=== PATIENT | female | born 1975 | race Hispanic/Latino ===

== ENCOUNTER 2019-09-27 14:44 | Outpatient (CLI) | payer OTHER ==
--- NOTE | 2019-09-27 15:53 | MMO ---
Bilateral MAMMO Bilat Diag DDI+TESHA. CLINICAL HISTORY: Patient is 44 years old and is seen for diagnostic exam and lump or thickening in the lower-inner region of the right breast. The patient has the following family history of breast cancer: cousin female, malignant (generic), MATERNAL and paternal aunt. The patient has no personal history of cancer. VIEWS: The views performed were: bilateral craniocaudal with tomosynthesis; bilateral mediolateral oblique with tomosynthesis; and bilateral mediolateral with tomosynthesis. FILMS COMPARED: The present examination has been compared to prior imaging studies performed at [facility] on 09/22/2016, and at [facility] on 09/27/2019. This study has been interpreted with the assistance of computer-aided detection. MAMMOGRAM FINDINGS: There are scattered fibroglandular densities. Left breast: There are no suspicious masses, calcifications or areas of architectural distortion. Right breast: There are no suspicious masses, calcifications or areas of architectural distortion. No mammographic or sonographic abnormality at the level of the palpable marker. Refer to separate US report. There are no suspicious masses, suspicious calcifications, or new areas of architectural distortion. IMPRESSION: THERE IS NO MAMMOGRAPHIC EVIDENCE OF MALIGNANCY. WITH REGARD TO THE PALPABLE FOCUS, FURTHER EVALUATION INCLUDING ADDITIONAL IMAGING AND/OR BIOPSY SHOULD BE BASED ON CLINICAL FINDINGS/SUSPICION. A ROUTINE FOLLOW-UP MAMMOGRAM IN 1 YEAR IS RECOMMENDED. THE RESULTS OF THIS EXAM WERE SENT TO THE PATIENT. ACR BI-RADS Category 2 - Benign finding MAMMOGRAPHY NOTE: 1. A negative mammogram report should not delay a biopsy if a dominant of clinically suspicious mass is present. 2. Approximately 10% to 15% of breast cancers are not detected by mammography. 3. Adenosis and dense breasts may obscure an underlying neoplasm. Reported by: SEVERO MARADIAGA MD Electonically Signed: [id number]
--- NOTE | 2019-09-27 16:07 | ULT ---
RIGHT BREAST ULTRASOUND: 09/27/19 HISTORY: Palpable area in the lower inner right breast. COMPARISON: None. TECHNIQUE: Targeted sonographic imaging of the right breast was performed. After reviewing static images, real t clarisse imaging was performed by the radiologist. Patient's right breast was also palpated by the radiologist. FINDINGS: There is evidence of a firm palpable focus in the inner lower right breast. Mammographic and sonograp hic images demonstrate fibroglandular tissue. No definite mass, architectural distortion or persisten t shadowing. IMPRESSION: BIRADS 2: Benign Finding(s) Routine annual screening mammography (for women over age 40). There is no mammographic or sonographic correlate to the palpable focus in the lower inner right [address]. RECOMMENDATION: Follow-up imaging in one year. With regard to the palpable focus, further evaluation including additi onal imaging and/or biopsy is recommended. Follow-up should be based upon clinical finding and/or jennifer picion. POS: JAIME
== END 2019-09-27 14:45 | disposition home or self-care (01) ==
LOC: BICMAMMO 14:44
PROVIDERS: ATTEND Family Medicine
DX: N63.10 Unspecified lump in the right breast, unspecified quadrant (principal)
CPT/HCPCS: 77066; G0279

== ENCOUNTER 2020-04-29 05:49 | Day surgery (SDC) | payer OTHER ==
[2020-04-25 10:38] VITALS: BMI 38.2
[2020-04-26 13:41] LABS: Hemoglobin 9.6 g/dL (12.0-16.0); Mean Corpuscular HGB CONC 30.7 g/dL (32.0-36.0); Mean Corpuscular Hemoglobin 21.7 pg (27.0-31.0); Mean Corpuscular Volume 70.8 fL (78.0-98.0); Mean Platelet Volume 9.5 fL (7.4-10.4); Platelet Count 312 thou/uL (130-400); RBC Distribution Width 15.7 % (11.5-14.5); Red Blood Cell (RBC) Count 4.43 mill/uL (4.20-5.40); White Blood Cell (WBC) Count 6.8 thou/uL (4.8-10.8)
[2020-04-26 13:42] LABS: BHCG - Serum Negative (NEGATIVE); Pregs Control Background? CLEAR/WHITE (CLR/WHITE); Pregs Control Bar Appear? YES (CONTROL BAR)
[2020-04-27 12:15] LABS: SARS-CoV-2 MS2 Positive; SARS-CoV-2 N Gene Negative; SARS-CoV-2 S Gene Negative; SARS-CoV-2 orf1ab Negative
[2020-04-29] MEDS ORDERED: Gabapentin 300 MG CAP ONE (06:13)
[2020-04-29] MEDS ORDERED: Famotidine/PF 20 mg/2ml Vial ONE (06:13)
[2020-04-29] MEDS ORDERED: Bupivacaine PF 0.5% 30 ML VIAL ONE (06:53)
[2020-04-29] MEDS ORDERED: Lidocaine 1% w/Epinephrine 1:100K 20 ML VIAL ONE (06:53)
[2020-04-29] MEDS ORDERED: Fentanyl 250 MCG/5 ML VIAL ONE (06:58)
[2020-04-29] MEDS ORDERED: Midazolam HCl 2 mg/2 ml Vial ONE ×2 (06:58→07:21)
[2020-04-29] MEDS ORDERED: Ropivacaine HCl/PF 750 ML in Premix Bag 1 BAG NERVE BLCK SCH ×2 (07:45→09:00)
[2020-04-29] MEDS ORDERED: Fentanyl 100 MCG/2 ML VIAL ONE ×2 (10:57→11:42)
[2020-04-29] MEDS ORDERED: Ondansetron PF 4 MG/2 ML Vial ONE (11:20)
[2020-04-29] MEDS ORDERED: PROPOFOL 200 MG/20 ML VIAL ONE (11:20)
[2020-04-29] MEDS ORDERED: Lidocaine 1% PF 5 ML VIAL ONE (11:20)
[2020-04-29] MEDS ORDERED: Rocuronium Bromide 10 MG/ML (10ML VIAL) ONE (11:20)
[2020-04-29] MEDS ORDERED: Glycopyrrolate 0.2 MG/ML 5 ML SYRINGE ONE (11:20)
[2020-04-29] MEDS ORDERED: PHENYLEPHRINE-NS 100 MCG/ML 10 ML SYRINGE ONE (11:20)
[2020-04-29] MEDS ORDERED: Ketorolac Tromethamine 30 MG/ML VIAL ONE (11:20)
[2020-04-29] MEDS ORDERED: Dexamethasone 20 MG/5 ML VIAL ONE (11:20)
[2020-04-29] MEDS ORDERED: Metoclopramide HCl 10 MG/2 ML VIAL ONE (11:20)
[2020-04-29] MEDS ORDERED: Morphine 2 MG/ML SYRINGE ONE (12:08)
--- NOTE | 2020-04-29 12:19 | OP ---
DATE OF PROCEDURE: 04/29/2020 PREOPERATIVE DIAGNOSES: Fibroid uterus, pelvic pain, menorrhagia. POSTOPERATIVE DIAGNOSES: Fibroid uterus, pelvic pain, menorrhagia. PROCEDURES PERFORMED: Robotic-assisted total laparoscopic hysterectomy with bilateral salpingectomy and ExCITE technique for removal of large fibroid uterus and placement of On-Q pain pump. CASINO CAGE MANAGER: Vanessa Hernandez PA-C ANESTHESIA: GETA. COMPLICATIONS: None. ESTIMATED BLOOD LOSS: 75 mL. OPERATIVE FINDINGS: 1. Large fibroid uterus measuring approximately 16 cm in length with 2 large lateral fibroids, 3 to 5 cm a piece. 2. Normal-appearing vagina and cervix. 3. Normal-appearing fallopian tubes and ovaries bilaterally. 4. Surgical site hemostatic. DESCRIPTION OF PROCEDURE: The patient was taken back to the OR with IV fluids running. When she was in the OR, she was placed in dorsal supine position and general anesthesia was obtained. Once the patient was asleep, she was placed in low dorsal lithotomy position and the abdomen and vagina were prepped and draped in normal fashion for gynecologic laparoscopy. Surgeons were gowned and gloved. A time-out was performed and antibiotics had been administered. A Santiago catheter was placed using sterile technique and placed to a Jeremy syringe for bladder manipulation if needed during the case. An operative speculum was placed into the vagina and the anterior lip of the cervix was grasped with a single-tooth tenaculum. The uterus sounded to approximately 10 cm. A Simplify manipulator was assembled with a 3 cm cup and an 8 cm tip and placed into the uterus and vagina in routine fashion. Once manipulator was placed, the surgeon's gloves were changed. Attention was turned to the laparoscopic portion of the case. Beginning approximately 2 cm above the umbilicus, local anesthesia was placed underneath the skin. A 12 mm skin incision was made with a scalpel and a Veress needle was placed through this incision and the abdomen was insufflated. After the abdomen was distended, the Veress needle was removed and a 12 mm trocar was placed through the supraumbilical port. The laparoscope was then placed through this port and the patient was placed in Trendelenburg position. The above findings were noted. Next, the right and left lower quadrant robotic 8 mm ports and the right upper quadrant 11 mm port were placed using similar technique under direct visualization without complication. After all 4 ports were placed, the supraumbilical skin incision was extended to approximately 3 cm in length at the skin and the fascial layer. A GelPOINT retractor was placed through this incision with a 12 mm trocar through the GelPOINT. The laparoscope and robotic instruments were then assembled with robotic arm docked at the patient's bedside. All instruments were placed under direct visualization. Beginning on the patient's left side, the left fallopian tube was grasped and elevated from the sidewall, transected using cautery and monopolar scissors. With the left fallopian tube removed, the left utero-ovarian ligament was cauterized and transected. The round ligament on the patient's left side was cauterized, transected, and divided into anterior and posterior leaves. The dissection was taken down toward the level of the uterine artery. The anterior leaf of the ligament was dissected away from the cervix and the vesicovaginal fascia was dissected in layers away from the planned colpotomy site. The uterine arteries and accessory vessels on the patient's left side were cauterized just above the level of the JONATHAN-Darryl manipulator. They were then transected. Bipolar cautery was used when additional hemostasis was needed. Next, attention was turned to the contralateral side. The right fallopian tube was grasped, elevated, and transected, and was removed from the operative field. The right ovary was noted to be somewhat adhered to the uterus on the patient's right side and was dissected away from the uterine serosa. The utero-ovarian ligament was transected after it was cauterized. The round ligament on the patient's right side was identified, cauterized, and transected. It was then dissected down towards the level of the uterine artery. The anterior leaf of the ligament was taken down towards the contralateral side where the bladder flap was began and the bladder was further dissected away from the planned colpotomy site. The uterine artery and accessory vessels on the patient's right side were cauterized and transected. Bipolar cautery was used as needed for additional hemostasis. Once the vessels were taken down bilaterally and hemostasis was assured, the colpotomy began posteriorly. The colpotomy was performed using monopolar scissors in a circumferential fashion. Once the colpotomy was completed, the uterine manipulator was removed. The vaginal cuff was copiously irrigated and suctioned dry. Any small areas of bleeding were controlled with bipolar cautery. The vaginal cuff was then closed with Stratafix suture in a running fashion from corner to corner and in 2 layers. After the vaginal cuff was closed, it was copiously irrigated and suctioned dry. No areas of bleeding were noted along any of the areas of dissection including the adnexa and the vaginal cuff. Next, a laparoscopic bag which had been placed into the abdomen at the beginning of the case was brought down into the pelvis and opened. The very large uterine specimen was placed into the bag and the looping string attached to the bag was brought through the GelPOINT retractor. The surgeon then returned to the bedside where all of the instruments were removed. The counts were correct. The operative ports were removed and the gas was released from the abdomen. The uterine specimen was brought up to the level of the supraumbilical incision. However, one of the protruding fibroids was noted to be outside of the bag with the majority of the specimen inside the bag. Due to the very large size of the fibroid, the decision was made to extend the supraumbilical incision. The supraumbilical incision was extended to approximately 4 to 5 cm in length. The surgeon's hand was then able to ensure that the entire fibroid specimen was within the bag and the bag was brought through the supraumbilical incision. Next, the morcellation of the fibroid uterus specimen using a coring C technique contained within the bag was used for approximately next 15 minutes. The fibroids and uterus were morcellated out of the supraumbilical incision. Once this was completed, the bag was removed. The supraumbilical incision was irrigated and dried. No areas of bleeding were noted. The fascia was then closed at this layer in a running fashion with Vicryl suture. Subcutaneous tissue was reapproximated with plain gut suture and the skin of all four incisions were closed with 4-0 Monocryl and dressed with Dermabond dressing. Of note, prior to removing the laparoscope, an On-Q catheter tip was placed through the skin and placed into the pelvis. This was done prior to the morcellation portion of the procedure. At the end of the procedure, the vagina was inspected. There was no bleeding noted. The patient tolerated the procedure well. The final count was correct. Job ID: [id number]
[2020-04-29] MEDS ORDERED: Simethicone Chewable 80 MG TAB PO PRN (13:15)
[2020-04-29] MEDS ORDERED: Acetaminophen/Codeine 120-12MG/5 ML UDCUP PO PRN (13:15)
[2020-04-29] MEDS ORDERED: Promethazine HCl 25 MG/ML VIAL IM PRN (13:15)
[2020-04-29] MEDS ORDERED: Morphine 4 MG/ML VIAL SLOW IVP PRN (13:15)
[2020-04-29] MEDS ORDERED: Ondansetron PF 4 MG/2 ML Vial IVP PRN (13:15)
[2020-04-29] MEDS: Sodium Chloride 0.9% 1,000 ML IV SCH (17:23)
[2020-04-29] MEDS: Ketorolac Tromethamine 30 MG/ML VIAL IVP SCH (18:00)
[2020-04-30] MEDS: Ketorolac Tromethamine 30 MG/ML VIAL IVP SCH ×2 (01:16→06:31)
[2020-04-30 04:20] VITALS: BP 136/72; TEMP 99.3
[2020-04-30] MEDS: Sodium Chloride 0.9% 1,000 ML IV SCH (06:35)
== END 2020-04-30 09:36 | disposition home or self-care (01) ==
LOC: SDC 05:49 → 3SW 12:57 → SDC 04-30 09:36
PROVIDERS: ATTEND Obstetrics & Gynecology
PROC: 0UT94ZZ Resection of Uterus, Percutaneous Endoscopic Approach (ICD-10-PCS; principal; 2020-04-30)
PROC: 0UT74ZZ Resection of Bilateral Fallopian Tubes, Percutaneous Endoscopic Approach (ICD-10-PCS; principal; 2020-04-30)
DX: D25.9 Leiomyoma of uterus, unspecified (principal); N73.6 Female pelvic peritoneal adhesions (postinfective); D64.9 Anemia, unspecified; E66.9 Obesity, unspecified; Z68.38 Body mass index [BMI] 38.0-38.9, adult; Z79.3 Long term (current) use of hormonal contraceptives; Z79.82 Long term (current) use of aspirin; Z88.2 Allergy status to sulfonamides
CPT/HCPCS: 84703; 85027; 86850; 86900; 86901; 87635; 88307; J0690; J1100; J1885; J2001; J2250; J2270; J2405; J2704; J2765; J2795; J3010; S0020; S0028; U0003

== ENCOUNTER 2020-05-14 11:18 | Outpatient (CLI) | payer OTHER ==
--- NOTE | 2020-05-14 13:01 | ULT ---
THYROID ULTRASOUND: DATE: 05/14/2020. PROVIDED CLINICAL HISTORY: Thyroid nodule. FINDINGS: Comparison 06/30/2017. The right thyroid lobe measures about 4.3 x 1.8 x 1.3 cm and demonstrates no f ocal abnormality. The left measures about 3.6 x 1 x 1.2 cm. The previously described cystic foci at the inferior pole of the left thyroid lobe appear decreased in size. The larger of the 2 foci now measures approximate ly 4 mm in greatest dimension as compared to about 1.3 cm on prior. The smaller nodules at the mid a nd superior region of the left thyroid lobe are no longer identified. No concerning thyroid nodule i s evident. Small echogenic foci are seen likely reflecting calcification involving the inferior pole of the left thyroid lobe. IMPRESSION: No concerning thyroid nodules are evident. POS: FLORES
== END 2020-05-14 11:19 | disposition home or self-care (01) ==
LOC: SCSULT 11:18
PROVIDERS: ATTEND Family Medicine
DX: E04.1 Nontoxic single thyroid nodule (principal)
CPT/HCPCS: 76536